=== PATIENT | male | born 1995 | race Caucasian/White ===

== ENCOUNTER 2017-03-22 02:37 | Emergency (ER) | payer MEDICAID, OTHER ==
[~2017-03-22] VITALS: Ht 188 cm; Wt 95.4 kg
[~2017-03-22 02:37] MED LIST: AMOXICILLIN PO; CIPR500T95 PO; [UNRECOGNIZED DRUG - OTHER] PO
[2017-03-22 02:39] VITALS: BP 118/79; PULSE 56; RESP 16; O2SAT 99
--- NOTE | 2017-03-22 02:47 | ED.REPORT ---
HPI-Extremity Problem Upper Date of Service Mar 22, 2017 ED Provider: Dr. Menard 21 y/o male with no pertinent hx presents to the ED complaining of right index finger laceration, onset 12 hours ago. The pt states he was using a sledgehammer when he smashed his finger by accident. He denies any significant change in sensation in the right hand and fingers. Nursing Notes Stated Complaint: LACERATION RIGHT INDEX FINGER Chief Complaint: Extremity Trauma Nursing Notes Reviewed: Yes Allergies: Coded Allergies: No Known Allergies (Verified Allergy, Severe, 03/22/17) Scheduled Amoxicillin/Clavulanate 125 mg/31.25 mg (Augmentin 125-31.25 mg Suspension) 150 Ml Bottle 100 ML PO BID Cephalexin (Keflex) 500 Mg Capsule 500 MG PO QID Ciprofloxacin (Cipro) 500 Mg Tablet 500 MG PO BID Scheduled PRN Ibuprofen (Ibuprofen) 600 Mg Tablet 600 MG PO QID PRN PRN For Pain General Time Seen by MD: 02:46 Chief Complaint Finger injury right 1 Hx Obtained From: Patient Arrived By: Walk-in Onset Occurred: 9 - 12 hours ago Symptom Duration: Since onset Caused by: Blunt injury Location: : Finger right 1 Quality: Painful Severity: Current: Moderate Severity: Maximum: Moderate Immunizations: Tetanus up to date Recent Healthcare: No recent doctor visit Similar Sx Previous: No Past Medical History Past Medical History none reported Past Surgical History left forearm Smoking History Unknown if Ever Smoker Ambulatory Status Independent Review of Systems Denies: change in sensation in right hand Musculoskeletal: Reports: Extremity pain (right index finger) Complete sys rev & neg: except as marked. Physical Exam Initial Vital Signs Vital Signs (First) Date Time Temp Pulse Resp B/P Pulse Ox O2 Delivery O2 Flow Rate FiO2 03/22/17 02:39 36.0 56 16 118/79 99 Initial VS: Reviewed, Vital signs normal Head / Eyes: Atraumatic, Normocephalic Neck: Supple, Non-tender, Full range of motion Respiratory: Breath sounds normal, No respiratory distress Cardiovascular: Intact distal pulses Lower Extremities: Vascular intact, Neuro intact, No swelling, No tenderness Skin: Warm, Dry, No cyanosis Neurologic: Alert, Oriented, Nonfocal General/Constitutional: Awake, Alert, Cooperative Upper Extremity / MS: Inspection NL, Full range of motion, No swelling, Non- tender, No erythema, No deformity, Neurologic intact, Vascular intact Wrist / Hand: Neurologic intact, Vascular intact 1.5cm laceration on dorsum of right index finger. Interpretation & Diagnostics X-Ray Interpretation Xray Interpretation: Small fracture in proximal IP joint. Small chunk of metal in the soft tissue. X-Ray Ordered: Hand right Interpretation / Wet Read by: Wet read ED physician Procedures Laceration Management Laceration Management: 1.5cm laceration Purse-string suture with an opening to allow drainage Time: 03:15 Procedure Performed by: ED physician Consent / Setup / Site Prep: Informed consent provided, Consent from patient , Time-out performed, Hand hygiene observed, Stand sterile technique Location of Wound: Right index finger Local Anesthesia: Lidocaine 1% Digital Block: No Wound Preparation: Betadine Debridement: Yes Foreign Body Explore / Removal: Explored for foreign body, Removed single, Complete removal # Sutures - Skin: 1 Post-Procedure / Complications: Antibiotic oint applied, Dressing applied, No complications, Condition improved, Tolerated procedure well, Patient stable Re-Eval/Medical Decision Med Decision/Clinical Course 21-year-old presents more than twelve hours out from an injury at work, where he struck his finger with a hammer. There is a burst laceration on the dorsum of the proximal and a friend phalangeal joint index finger right hand. She has a fairly high risk of infection at this point and this was disclosed him explicitly. However, there is fairly open wound with sufficient distance that the wound healing will be prolonged in any case. Alternative of heavy lavage, loose closure with a single stitch, and antibiotics with close follow-up elected. Started with Keflex orally. A single pursestring suture was placed as detailed above, with loose approximation wound, but room for drainage if need be. He is directed to return if any signs of infection. Otherwise refer a week for suture removal. Source of Hx: Old records Re-Evaluation/Progress : Time of Eval: 03:25 Patient Status: Condition improved Re-Evaluation/Progress Note: Discussed imaging results, diagnosis and plan to discharge. Pt understands and agrees with the plan. F/U instructions and RTER warning given. All questions addressed. Counseled Regarding: Diagnosis, Need for follow-up, When/why to return to ED Discharge & Departure Impression: Primary Impression: Fracture of middle phalanx of right index finger Additional Impression: Laceration of finger with delay in treatment Disposition: Home Discharge Condition All VS Reviewed: Yes Condition: Stable Patient Instructions: Acute Wounds (ED), Wound Infection (ED) Additional Instructions: There is a 50% chance that this wound will become infected. If you see Pus increasing redness and swelling, or other signs of infection, return and have it reassessed. The stitch may need removal. If it is healing well, the stitch needs removal in about seven or eight days. Return here for that. Keflex four times daily for seven days. Splint full-time until stitches come out. Remove briefly to clean and apply ointment to the wound, and then redress with fresh gauze and reapply the splint. The warts can be treated with generic cimetidine two tablets four times daily for six weeks. You can obtain that [id number] fairly cheaply. Cimetidine is the generic for Tagamet. Referrals: Brendon Oh MD (PCP) Scribe Attestation Portions of this note were transcribed by Steve Trujillo. I, , personally performed the history, physical exam and medical decision- making;I reviewed and confirmed the accuracy of the information in the transcribed note. Signed by Stella Price. 03/22/17 03:42 copies to: Brendon Oh MD, Christopher W MD Mar 22, 2017 02:47 Steve Trujillo Mar 22, 2017 03:03
[2017-03-22] MEDS ORDERED: IBUP-1827 PO (03:35)
[2017-03-22] MEDS ORDERED: CEPH-512 PO (03:35)
--- NOTE | 2017-03-22 10:05 | DRSVH ---
PROCEDURE: X-RAY FINGERS, TWO VIEWS INDICATIONS: SMASHED 2ND DIGIT BETWEEN FENCE POST AND SLEDGE HAMMER TECHNIQUE: AP hand, 2 views of the second finger acquired. COMPARISON: None. FINDINGS: Bones: No dislocations. No suspicious bony lesions. There appears to be a crush injury to the seco nd digit, proximal interphalangeal joint, with fracture avulsion fragments along the proximal cortica l margin of the metadiaphyseal junction of the second middle phalanx. Soft tissues: No suspicious soft tissue calcifications. IMPRESSION: Avulsion fragments from crush injury as discussed above adjacent to the second proximal i nterphalangeal joint but not extending into the joint itself. This may represent the equivalent of a n open fracture depending on the overlying soft tissues. Dictated by: Gideon Vidal M.D. on 03/22/2017 at 10:02 Approved by: Gideon Vidal M.D. on 03/22/2017 at 10:03
== END 2017-03-22 03:40 | disposition home or self-care (01) ==
LOC: SED 02:37
DX: S62.620A Displaced fracture of middle phalanx of right index finger, initial encounter for closed fracture (principal); S61.210A Laceration without foreign body of right index finger without damage to nail, initial encounter; Y93.89 Activity, other specified; Y92.89 Other specified places as the place of occurrence of the external cause; Y99.0 Civilian activity done for income or pay

== ENCOUNTER 2017-03-30 17:42 | Emergency (ER) | payer OTHER ==
[~2017-03-30 17:42] MED LIST changes: +CEPH-512 PO; +IBUP-1827 PO
[2017-03-30 18:03] VITALS: BP 115/76; PULSE 90; RESP 16; O2SAT 97
== END 2017-03-30 18:13 | disposition home or self-care (01) ==
LOC: SED 17:42
DX: Z48.02 Encounter for removal of sutures (principal)